=== PATIENT | male | born 1960 | race Caucasian/White ===

== ENCOUNTER → 2022-06-01 | Day surgery (SDC) | payer BC ==
[~2022-06-01] MED LIST: AMLODIPINE BESY10 MG PO; CRESTOR10 MG PO; DEXAMETHASONE SOD PHOS INJ 4 MG/ML SDV ONE; EPINEPHRINE HCL 1:1000 1ML 1 MG/ML AMP ONE; FENTANYL CITRATE/PF 100MCG/2 ML INJ ONE; HYDROCHLOROTHIA25 MG PO; LIDOCAINE HCL 2% LOCAL INJ 5 ML SDV VIAL INJ ONE; LISINOPRIL10 MG PO; MIDAZOLAM HCL 2 MG/2 ML VIAL ONE; MULTI-VITAMIN1 EACH PO; NEXIUM40 MG PO; OFLOXACIN 0.3% (OTIC SOL) 5 ML BTL ONE; ONDANSETRON HCL INJ 2MG/ML 2ML 2 MG/ML VIAL ONE; POVIDONE IODINE 0.05% 0.05 % ML PO ONE; PROPOFOL IV EMULSION 10 MG/ML 20 ML VIAL ONE; ROCURONIUM BROMIDE 10 MG/ML 5ML VIAL IV ONE; SEVOFLURANE INHAL SOLN 250 ML PEN BTL ONE; VITAMIN C500 MG PO; VITAMIN D31 GM PO; ZINC
[2022-06-01 14:05] VITALS: BP 116/70
== END | disposition home or self-care (01) ==
LOC: OR 09:46
PROVIDERS: ATTEND Otolaryngology Otolaryngology/Facial Plastic Surgery
DX: H65.22 Chronic serous otitis media, left ear (principal); J32.9 Chronic sinusitis, unspecified; G47.33 Obstructive sleep apnea (adult) (pediatric); I10 Essential (primary) hypertension; E66.9 Obesity, unspecified; Z79.899 Other long term (current) drug therapy
CPT/HCPCS: 31237; 69436; 88305; 93005; J0171; J1100; J2001; J2250; J2405; J2704; J3010; 88304

== ENCOUNTER → 2024-02-14 | Day surgery (SDC) | payer OTHER ==
[~2024-02-14] MED LIST changes: +DEXAMETHASONE SOD PHOS 10 MG/1 ML VIAL ONE; -DEXAMETHASONE SOD PHOS INJ 4 MG/ML SDV ONE; -EPINEPHRINE HCL 1:1000 1ML 1 MG/ML AMP ONE; -MIDAZOLAM HCL 2 MG/2 ML VIAL ONE; -POVIDONE IODINE 0.05% 0.05 % ML PO ONE; -ROCURONIUM BROMIDE 10 MG/ML 5ML VIAL IV ONE; +WEGOVY2.4 MG/0.7
[2024-02-14 08:01] LABS: BASOPHILS % 0.5 % (0.0-1.0); EOSINOPHILS # (AUTO) 0.2 (0.0-0.4); EOSINOPHILS % 2.3 % (0.0-6.0); HEMATOCRIT 44.2 % (38.2-49.6); HEMOGLOBIN 14.6 g/dL (14.0-18.0); LYMPHOCYTES # (AUTO) 2.4 (1.0-3.2); LYMPHOCYTES % 27.4 % (18.0-39.1); MEAN CORPUSCULAR HEMOGLOBIN 31.1 pg (28-32); MONOCYTES # (AUTO) 0.9 (0.2-0.8); NEUTROPHILS # (AUTO) 5.2 (2.1-6.9); NEUTROPHILS % 59.6 % (38.7-80.0); PLATELET COUNT 366 x10e3/uL (140-360); RED CELL DISTRIBUTION WIDTH 12.3 % (11.7-14.4); WHITE BLOOD COUNT 8.77 x10e3/uL (4.8-10.8)
[2024-02-14] MEDS: LACTATED RINGER'S 1,000 ML ONE (08:21)
[2024-02-14 08:29] LABS: ANION GAP 15.1 mmol/L (8-16); CALCIUM 9.5 mg/dL (8.4-10.2); CREATININE, SERUM 1.16 mg/dL (0.72-1.25); POTASSIUM 4.1 mmol/L (3.5-5.1)
[2024-02-14 10:45] VITALS: BP 124/89; PULSE 69; RESP 13; O2SAT 98
== END | disposition home or self-care (01) ==
LOC: OR 05:45
PROVIDERS: ATTEND Otolaryngology Otolaryngology/Facial Plastic Surgery
DX: H65.22 Chronic serous otitis media, left ear (principal); H60.91 Unspecified otitis externa, right ear; Z45.82 Encounter for adjustment or removal of myringotomy device (stent) (tube); H91.92 Unspecified hearing loss, left ear; H93.12 Tinnitus, left ear; I10 Essential (primary) hypertension; G47.33 Obstructive sleep apnea (adult) (pediatric); E78.5 Hyperlipidemia, unspecified; Z87.891 Personal history of nicotine dependence; E66.9 Obesity, unspecified; K21.9 Gastro-esophageal reflux disease without esophagitis; N28.9 Disorder of kidney and ureter, unspecified; Z79.85 Long-term (current) use of injectable non-insulin antidiabetic drugs; Z79.899 Other long term (current) drug therapy
CPT/HCPCS: 36415; 69399; 69436; 80048; 85025; 93005; J1100; J2001; J2405; J2704; J3010; J7121

== ENCOUNTER → 2025-04-30 | Day surgery (SDC) | payer OTHER ==
[~2025-04-30] MED LIST changes: -DEXAMETHASONE SOD PHOS 10 MG/1 ML VIAL ONE; +FAMOTIDINE 20 MG/2 ML VIAL IV ONE; +METOCLOPRAMIDE HCL 10 MG/2ML VIAL ONE; -OFLOXACIN 0.3% (OTIC SOL) 5 ML BTL ONE; -SEVOFLURANE INHAL SOLN 250 ML PEN BTL ONE; +ZEPBOUND15 MG/0.5 SC; +ZETIA10 MG PO
[2025-04-30] MEDS: LACTATED RINGER'S 1,000 ML ONE (08:50)
[2025-04-30 09:17] LABS: EST GLOMERULAR FILTRATION RATE 98.0 ML/MIN (>=60)
[2025-04-30 10:33] VITALS: TEMP 97.5
[2025-04-30 11:25] VITALS: BP 124/87; PULSE 70; RESP 16; O2SAT 98
== END | disposition home or self-care (01) ==
LOC: OR 07:45
PROVIDERS: ATTEND Otolaryngology Otolaryngology/Facial Plastic Surgery
DX: H66.92 Otitis media, unspecified, left ear (principal); H93.19 Tinnitus, unspecified ear; H91.92 Unspecified hearing loss, left ear; I10 Essential (primary) hypertension; E78.5 Hyperlipidemia, unspecified; K21.9 Gastro-esophageal reflux disease without esophagitis; G47.33 Obstructive sleep apnea (adult) (pediatric); Z79.899 Other long term (current) drug therapy; Z79.85 Long-term (current) use of injectable non-insulin antidiabetic drugs; Z68.30 Body mass index [BMI] 30.0-30.9, adult; Z01.810 Encounter for preprocedural cardiovascular examination; Z01.812 Encounter for preprocedural laboratory examination
CPT/HCPCS: 31237; 36415; 69436; 80048; 88305; 93005; C1878; J1308; J2003; J2405; J2704; J2765; J3010; J7121